=== PATIENT | female | born 1970 | race African-American/Black ===

== ENCOUNTER 2022-01-01 12:36 | Emergency (ER) | payer MEDICAID ==
[~2022-01-01] VITALS: Ht 175.3 cm; Wt 129.6 kg
[2022-01-01] MEDS ORDERED: MethylPREDNISolone SOD SUCC 125 MG/2 ML VIAL IM ONE (13:30)
[2022-01-01] MEDS ORDERED: KETOROLAC TROMETHAMINE 60 MG/2 ML VIAL IM ONE (13:30)
[2022-01-01] MEDS ORDERED: GABAPENTIN 300 MG CAPSULE PO ONE (13:30)
[2022-01-01] MEDS ORDERED: METO25 PO (13:31)
[2022-01-01] MEDS ORDERED: AMLO-257 PO (13:31)
[2022-01-01] MEDS ORDERED: GABA-1201 PO (13:31)
[2022-01-01] MEDS ORDERED: NAPR-1025 PO (13:31)
[2022-01-01 14:34] VITALS: BP 137/90
[2022-01-01] MEDS ORDERED: NAPR-1024 PO (14:45)
[2022-01-01] MEDS ORDERED: GABA-1181 PO (14:45)
== END 2022-01-01 15:05 | disposition home or self-care (01) ==
LOC: EMS 12:36
DX: M17.11 Unilateral primary osteoarthritis, right knee (principal); I10 Essential (primary) hypertension; Z79.899 Other long term (current) drug therapy
CPT/HCPCS: 29505; 96372; 99284; J1885; J2930